=== PATIENT | female | born 1960 | race Caucasian/White ===

== ENCOUNTER 2022-01-02 13:00 | Emergency (ER) | payer MEDICAID, SELFPAY ==
[2022-01-02 13:02] VITALS: BP 85/69; PULSE 112; RESP 17; TEMP 35.7; O2SAT 97; BMI 25.6
--- NOTE | 2022-01-02 13:26 | EX.ED.DYSGE1 ---
HPI History of Present Illness Chief Complaint: Sore Throat Informant: patient Narrative Narrative: Patient presents with a sore throat on the right side. She states she has had sore throats and ulcers from her chemotherapy before. She is not sure if this is the same. Her last chemo was about 12 days ago now. This is being done at [facility]. She had a low white counts at about 0.25 on Tuesday. She also has a long history of low sodium and low potassium and low magnesium. She takes supplementation for all of these. She states even with that they tend to run low. She has some chronic diarrhea also. The only situation that is changed really is the sore throat on her right side. She is able to eat and drink and swallow. It is a little bit more sore with swallowing though. No known exposures to any illnesses. There is no swelling or visual change that she is noted. She does not have a history of having thrush. Patient was diagnosed with breast cancer after a biopsy done in May 2021. She started chemotherapy in July. Her last chemotherapy was just 12 days ago. She is scheduled to have surgery in January and then radiation after that. This is thought to be a local cancer without any indication of spread. She has had neutropenia after each of her chemo's. She has had ongoing electrolyte abnormalities and diarrhea also. She has also had some the sore throat and occasional ulcerative lesions. She does have Magic mouthwash at home. PFSH PFSH Allergy/AdvReac Type Severity Reaction Status Date / Time No Known Allergies Allergy Verified 01/02/22 13:01 Social History Smoking Status: Former smoker ROS ROS ED Constitutional Constitutional ED: Denies chills or fever(s) Eyes Eyes: Denies blurry vision or change in vision ENT ENT ED: Reports sore throat; Denies ear pain or rhinorrhea Cardiovascular Cardiovascular: Denies chest pain or palpitations Respiratory/Chest Respiratory/Chest: Denies cough or dyspnea Gastrointestinal Gastrointestinal: Reports diarrhea and other Details: Diarrhea is chronic and unchanged ; Denies abdominal pain, nausea or vomiting Genitourinary Genitourinary ED: Denies dysuria Musculoskeletal Musculoskeletal: Denies myalgias Integumentary Denies rash Neurologic Neurologic: Denies headache(s) Psychiatric Psychiatric: Denies anxiety or depression Endocrine Endocrinology: Denies polydipsia or polyuria Allergic/Immunologic Allergic/Immunologic ED: Denies urticaria EXAM Physical Exam Const Vital Signs: 01/02/22 13:02 01/02/22 15:36 Temperature 96.2 F L Temperature Source Temporal Pulse Rate 112 H 107 H Respiratory Rate 17 24 H Blood Pressure 85/69 L 114/80 Blood Pressure Mean 74 91 Pulse Ox 97 97 Oxygen Delivery Method Room Air Room Air Positive well nourished and well developed Constitutional Narrative: Despite the patient's vitals, the patient is sitting comfortably on the bed, talking on her phone. She is very nontoxic. She can get up and walk around. She states she has had some lower blood pressures and higher heart rates with her chemo. She does not feel acutely ill. General Appearance ED: well developed and NAD HEENT Reports moist mucous membranes HEENT Narrative: Mucous membranes are moist. I do not see any swelling. There is no notable erythema. There is no thrush. No mass. No bleeding. Intraoral exam is actually relatively normal. There is no asymmetry side to side. Eyes PERRL and EOMs intact bilaterally Neck No no JVD Neck Narrative: Patient has some mild soreness near the angle of the mandible on the right but there is no swelling or notable lymph nodes. No visual change. Chest Wall inspection of chest normal Chest Narrative: Patient has a Mediport of the left upper chest. It does not look infected. She states she has had problems with it working recently. She might need a peripheral IV. Heparin was just placed in it yesterday trying to get it to flow better. Resp normal respiratory effort and clear to auscultation bilaterally Cardio regular rhythm Rate: tachycardic GI normal to inspection, nondistended, normoactive bowel sounds and non-tender Palpation: soft Back/Spine no CVA tenderness Extremity normal to inspection General Extremety ED: Negative for tenderness Neuro oriented x3 Sensorium / Orientation: alert Psych mental status grossly normal Skin no rashes or lesions noted MDM MDM MDM Narrative Medical decision making narrative: Labs show multiple abnormalities. White count is not back on the lab but the lab called me and said her white count is 0.7. This is a rise from 0.24 two days ago. Her hemoglobin was 7.0 at 6.7 today. Platelets were 116,000 they are 57,000 today but she has no bleeding complaints. Sodium is up from 1 28-1 31. Potassium is down from 4.0-2.7. Magnesium is down from 1.7-1.2. I discussed all these abnormalities with the patient. She states she knew her potassium and magnesium would be low. She asked them to give her some IV potassium magnesium when she was in just the other day. She states this is an ongoing recurrent problem. She states she does not feel ill. Her biggest concern was if her white count was not starting to come up. She does not want to be admitted to the hospital. She states if she were to be admitted she would rather just drive up to [place]. I did talk with her about getting magnesium and potassium here. She is willing to do that. If any issues occur in the meantime we can change. But this patient knows her illness well. She knows her condition. She is comfortable. She has good follow-up. It is reasonable to try to replace her electrolytes and as long as she still feels well she will follow-up as an outpatient. Patient is getting infusion of electrolytes. As long as she feels well and still wants to go home I think that is reasonable. She is turned over to the oncoming doc. She still has probably a couple hours of infusion. Lab Data Attestation: I reviewed the patient's lab results. Labs: Laboratory Results - last 24 hr 01/02/22 01/02/22 01/02/22 14:00 14:00 14:00 WBC Cancelled 0.7 L* Corrected WBC Cancelled RBC Cancelled 2.26 L Hgb Cancelled 6.7 L Hct Cancelled 19.5 L MCV Cancelled 86.3 MCH Cancelled 29.6 MCHC Cancelled 34.4 RDW Std Deviation Cancelled 14.6 L RDW Coeff of Marina Cancelled 45.9 H Plt Count Cancelled 57 L MPV Cancelled 11.1 Immature Gran % (Auto) Cancelled Neut % (Auto) Cancelled Not Reportable Lymph % (Auto) Cancelled Morton % (Auto) Cancelled Eos % (Auto) Cancelled Baso % (Auto) Cancelled Absolute Neuts (auto) Cancelled 0.3 L Absolute Lymphs (auto) Cancelled 0.16 L Total Counted Cancelled 100 Neutrophils % (Manual) Cancelled 36 L Band Neutrophils % Cancelled 2 Lymphocytes % (Manual) Cancelled 23 Monocytes % (Manual) Cancelled 35 H Eosinophils % (Manual) Cancelled Basophils % (Manual) Cancelled Metamyelocytes % Cancelled 4 H Myelocytes % Cancelled 2 H Promyelocytes % Cancelled Blast Cells % Cancelled Plasma Cell % (Manual) Cancelled Other Cells % Cancelled Nucleated RBC % Cancelled Nucleated RBCs/100 WBC Cancelled Differential Comment Cancelled Diff Path Review Cancelled May foll Hypersegmented Neuts Cancelled Atypical Lymphocytes Cancelled Reactive Lymphocytes Cancelled Smudge Cells Cancelled Toxic Granulation Cancelled Toxic Vacuolation Cancelled Dohle Bodies Cancelled China Rods Cancelled Platelet Estimate Cancelled MKD DEC Plt Morphology Comment Cancelled RBC Morphology Cancelled NORM C+C Polychromasia Cancelled Hypochromasia Cancelled Poikilocytosis Cancelled Basophilic Stippling Cancelled Anisocytosis Cancelled Microcytosis Cancelled Macrocytosis Cancelled Spherocytes Cancelled Sickle Cells Cancelled Target Cells Cancelled Tear Drop Cells Cancelled Ovalocytes Cancelled Stomatocytes Cancelled Santana-Mobile Bodies Cancelled Trudy Cells Cancelled Bite Cells Cancelled Crenated Cell Cancelled Acanthocytes (Spur) Cancelled Rouleaux Cancelled Schistocytes Cancelled Sodium 131 L Potassium 2.7 L* Chloride 98 Carbon Dioxide 25.0 Anion Gap 8 BUN 8 Creatinine 0.41 L Estim Creat Clear Calc 112.52 Est GFR (MDRD) Af Amer 201 Est GFR (MDRD) Non-Af 166 BUN/Creatinine Ratio 19.4 Glucose 94 Calcium 7.8 L Magnesium 1.2 L Discharge Plan Triage Chief Complaint: Sore Throat ED Provider: Wyatt Yu Dx/Rx/DC Orders Clinical Impression: Hypokalemia, Hypomagnesemia, Leukopenia, Breast cancer in female, Anemia, Thrombocytopenia Instructions: Thrombocytopenia, ED Hypokalemia Primary Care Provider: Paddy Pizarro Referrals: Paddy Pizarro MD [Primary Care Provider] - Activity Restrictions/Additional Instructions: Follow-up with Dr. Uday Ardon as soon as possible. Disposition Disposition: Home, Self Care
[2022-01-02 14:24] LABS: Anion Gap 8 (5-15); BUN 8 mg/dL (7-18); BUN/Creat Ratio 19.4 RATIO (10-20); Calcium,Total 7.8 mg/dL (8.5-10.1); Chloride 98 mmol/L (98-107); Creatinine, Serum 0.41 mg/dL (0.55-1.02); EST Glomerular Filtration Rate 166 mL/min (>60); Est Glom Filt Rate - Afr Amer 201 mL/min (>60); Estimated Creatinine Clearance 112.52 ml/min; Glucose 94 mg/dL (74-106); Magnesium 1.2 mg/dL (1.6-2.6); Potassium 2.7 mmol/L (3.5-5.1); Sodium Level 131 mmol/L (136-145)
[2022-01-02] MEDS: Potassium Chloride 20mEq/100mL 20 MEQ/100 ML IV.SOLN. 100 MEQ IV BOLUS ×2 (15:19→18:27)
[2022-01-02 15:28] LABS: Hematocrit 19.5 % (37-47); Hemoglobin 6.7 g/dL (12.0-15.0); Mean Corp Hgb Conc 34.4 g/dL (32-36); Mean Corpuscular Hgb 29.6 pg (27.0-32.0); Mean Corpuscular Volume 86.3 fL (81-99); Mean Platelet Vol. 11.1 fl (6.2-12.0); Platelet Count 57 K/mm3 (150-450); RBC Distribution Width CV 45.9 % (11.6-14.6); RBC Distribution Width SD 14.6 fl (35.1-43.9); Red Blood Count 2.26 M/mm3 (4.2-5.4); White Blood Count 0.7 K/mm3 (4.4-11.0)
[2022-01-02 15:29] LABS: Differential Indicated MANUAL DIFF; POSITIVE COUNT YES; POSITIVE DIFFERENTIAL YES; POSITIVE MORPHOLOGY YES
[2022-01-02 15:30] LABS: Absolute Lymphocyte Count 0.16 X10^3/uL (0.83-4.51); Absolute Neutrophil Count 0.3 X10^3/uL (2.0-7.7); Neutrophil-Band 2 % (0-5); Neutrophil-Segmented 36 % (47-70); Total Cells Counted 100 (MANUAL DIFF)
[2022-01-02 15:31] LABS: Lymphocyte 23 % (19-41); Metamyelocyte 4 % (0-1); Monocyte 35 % (0-10); Myelocyte 2 % (0-0); Platelet Estimate MKD DEC (ADEQ); Red Cell Morphology NORM C+C NORMAL (NORM C&C)
[2022-01-02 15:36] VITALS: BP 114/80; PULSE 107; RESP 24; O2SAT 97
[2022-01-02 16:52] VITALS: BP 93/68; PULSE 100; RESP 17; O2SAT 98
[2022-01-02 19:41] VITALS: BP 104/63; PULSE 98; O2SAT 97
[2022-01-04 14:39] LABS: Pathologist Review Reviewed
== END 2022-01-02 19:50 | disposition home or self-care (01) ==
PROVIDERS: Emergency Provider Emergency Medicine; PCP Family Medicine; Visit Provider Emergency Medicine
DX: E87.6 Hypokalemia (principal); D69.6 Thrombocytopenia, unspecified; C50.919 Malignant neoplasm of unspecified site of unspecified female breast; E83.42 Hypomagnesemia; D64.9 Anemia, unspecified; K52.9 Noninfective gastroenteritis and colitis, unspecified; Z79.899 Other long term (current) drug therapy; Z87.891 Personal history of nicotine dependence
CPT/HCPCS: 36591; 80048; 83735; 85025; 87880; 96361; 96365; 96366; 96368; 99285; J7030; A4216